=== PATIENT | male | born 1965 | race Caucasian/White ===

== ENCOUNTER 2016-11-30 20:35 | Emergency (ER) | payer MEDICARE ==
[2016-11-30] MEDS ORDERED: ONDANSETRON HCL IV 4 MG/2 ML VIAL IV ONE (20:53)
[2016-11-30] MEDS ORDERED: 0.9 % SODIUM CHLORIDE 1,000 ML BAG IV ONE (20:53)
[2016-11-30] MEDS ORDERED: MORPHINE SULFATE 5 MG/ML PFS IVP ONE (20:56)
--- NOTE | 2016-11-30 20:57 | Emergency Department Record ---
History of Present Illness - General Chief complaint: Pain Stated complaint: GENITAL PAIN Time Seen by Provider: 11/30/16 20:51 Source: Patient, Family Mode of Arrival: Ambulatory Limitations: No limitations - History of Present Illness Initial comments: 51 yo male presents with low abdominal pain into the groin and scrotum for about 3 weeks. No fevers or chills. No nausea, vomiting or changes in bowel movements. No changes in urination. At times the pain radiates to scrotum. No obvious swelling or hernia. He saw his PCP that did a pelvic US and XR. The pain is present at all times. No rash. He has prior history of gall bladder removal. Prior history of CABD, DM, HTN. -: Week(s) (3) Location: Left, Other (groin) History of Same: Yes Radiation: Distal Quality: Aching Consistency: Constant Improves with: Immobilization Worsens with: Exertion, Palpation Associated Symptoms: Denies other symptoms - Related Data Home Medications Medication Instructions Recorded Confirmed Last Taken Amlodipine Besylate [Norvasc] 10 mg PO DAILY 11/30/16 11/30/16 Unknown Aspirin [Adult Low Dose Aspirin EC] 81 mg PO DAILY 11/30/16 11/30/16 Unknown Atorvastatin Calcium [Lipitor] 80 mg PO DAILY 11/30/16 11/30/16 Unknown Cholecalciferol (Vitamin D3) 2,000 unit PO DAILY 11/30/16 11/30/16 Unknown [Vitamin D3] Fenofibrate [Lofibra] 160 mg PO DAILY 11/30/16 11/30/16 Unknown Furosemide [Lasix] 40 mg PO DAILY 11/30/16 11/30/16 Unknown Gabapentin [Neurontin] 300 mg PO TID 11/30/16 11/30/16 Unknown Gabapentin [Neurontin] 600 mg PO TID 11/30/16 11/30/16 Unknown Insulin Aspart Protam & Aspart 40 unit SQ QAM 11/30/16 11/30/16 Unknown [Novolog Mix 70/30 Vial] Insulin Aspart Protam & Aspart 50 unit SQ QPM 11/30/16 11/30/16 Unknown [Novolog Mix 70/30 Vial] Lamotrigine [Lamictal Xr] 50 mg PO DAILY 11/30/16 11/30/16 Unknown Lisinopril [Zestril] 100 mg PO DAILY 11/30/16 11/30/16 Unknown Metformin HCl [Glucophage] 1,000 mg PO BID 11/30/16 11/30/16 Unknown Metoprolol Tartrate [Lopressor] 100 mg PO BID 11/30/16 11/30/16 Unknown Nitroglycerin [Nitrostat] 0.4 mg SL Q5MIN PRN MDD 3 11/30/16 11/30/16 Unknown Potassium Chloride [Klor-Con] 20 meq PO BID 11/30/16 11/30/16 Unknown Ropinirole HCl [Requip] 0.25 mg PO TID 11/30/16 11/30/16 Unknown Previous Rx's Medication Instructions Recorded Ciprofloxacin HCl [Cipro] 500 mg PO Q12HR #20 tablet 11/30/16 Hydrocodone/Acetaminophen [[place] 1 tab PO Q6H PRN #15 tab 11/30/16 5mg/325mg] Allergies Allergy/AdvReac Type Severity Reaction Status Date / Time No Known Drug Allergies Allergy Verified 11/30/16 20:47 Review of Systems Constitutional: Denies: Chills, Fever, Malaise, Weakness Eyes: Denies: Eye discharge, Eye pain ENT: Denies: Congestion, Throat pain Respiratory: Denies: Cough Cardiovascular: Denies: Chest pain, Palpitations, Syncope Endocrine: Denies: Fatigue Gastrointestinal: Reports: As per HPI, Abdominal pain. Denies: Constipation, Diarrhea, Hematemesis, Melena, Nausea, Vomiting Genitourinary: Denies: Dysuria, Frequency, Hematuria Musculoskeletal: Denies: Arthralgia, Back pain, Myalgia, Neck pain Skin: Denies: Change in color Neurological: Denies: Headache Psychiatric: Denies: Anxiety Hematological/Lymphatic: Denies: Blood Clots, Easy bleeding, Easy bruising, Swollen glands Physical Exam - General General Appearance: Alert, Oriented x3, Cooperative, No acute distress Limitations: No limitations - Head Head exam: Normal inspection - Eye Eye exam: Normal appearance, PERRL. negative: Conjunctival injection, Periorbital swelling - ENT ENT exam: Normal exam Ear exam: Normal external inspection Nasal Exam: Normal inspection Mouth exam: Normal external inspection Teeth exam: Normal inspection Throat exam: Normal inspection - Neck Neck exam: Normal inspection, Full ROM. negative: Tenderness - Respiratory Respiratory exam: Normal lung sounds bilaterally. negative: Respiratory distress - Cardiovascular Cardiovascular Exam: Regular rate, Normal rhythm, Normal heart sounds - GI/Abdominal GI/Abdominal exam: Soft. negative: Distended - Rectal Rectal exam: Deferred - exam: Normal inspection, Testicular tenderness, Other (The scrotum is normal on inspection with standing, no erythema or visivle swelling. Normal penis on examination. He has mildly tender bilateral ). negative: Scrotal swelling, Urethral discharge - Extremities Extremities exam: Normal inspection, Full ROM, Normal capillary refill. negative: Tenderness - Back Back exam: Reports: Normal inspection, Full ROM. Denies: Muscle spasm, Rash noted, Tenderness - Neurological Neurological exam: Alert, Normal gait, Oriented X3 - Psychiatric Psychiatric exam: Normal affect, Normal mood - Skin Skin exam: Dry, Intact, Normal color, Warm Course Vital Signs 11/30/16 20:42 Temperature 97.9 F Pulse Rate [ 63 Pulse Ox Probe] Respiratory 20 Rate Blood Pressure 143/81 [Left Arm] Pulse Ox 95 - Reevaluation(s) Reevaluation #1: Vitals reviewed EMR reviewed. NO prior visit to [facility] Pt's PCP is in [place], He had his gall bladder removed in [place] as well 11/30/16 21:00 Reevaluation #2: No acute changes of the CBC or BMP 11/30/16 21:42 Reevaluation #3: The CT scan was negative for any acute process. No stones, hernias, mass or acute changes The results were discussed with the patient. The CT does not rule out other causes such as prostatitis, orchitis (although at this time his scrotal exam is unremarkable for swelling. He does state both testicles are tender on palpation.) I recommend he get a scrotal US as well. I recommend antibiotic in the event his pain is from prostatitis or orchitis. His pain has been present for 3 weeks or more. I recommend scrotal US as well. We discussed the options of seeing his PCP or returning. He requests return in the AM. I called radiology. There is a 9am opening. He will return at 8:45am no prep required. 11/30/16 21:47 Medical Decision Making - Lab Data Result diagrams: 11/30/16 21:00 11/30/16 21:00 Disposition Disposition: Discharge Clinical Impression: Scrotal pain Groin pain Qualifiers: Laterality: unspecified laterality Qualified Code(s): R10.30 - Lower abdominal pain, unspecified Disposition: Home, Self-Care Condition: (1) Good Additional Instructions: Return at 8:45am to the ER for a 9am US If worse, fever, uncontrolled pain return sooner or seek medical attention Cipro Twice daily [place] as directed as needed. No driving if on [place] Prescriptions: Ciprofloxacin HCl [Cipro] 500 mg PO Q12HR #20 tablet Hydrocodone/Acetaminophen [[place] 5mg/325mg] 1 tab PO Q6H PRN #15 tab PRN Reason: Pain - General Forms: Patient Portal Access Time of Disposition: 22:00
[2016-11-30 21:07] LABS: BASO % 0.3 % (0-6); EOS % 4.5 % (0-6); GRAN % 58.3 % (47-80); HEMATOCRIT 44.3 % (42.0-52.0); HEMOGLOBIN 14.9 gm/dl (14.0-18.0); LYMPH % 29.5 % (16-45); MEAN CELL VOLUME 82.3 fl (81-97); MEAN CORPUSCULAR HEMOGLOBIN 27.7 pg (27-33); MEAN CORPUSCULAR HGB CONC 33.6 g/dl (32-36); MEAN PLATELET VOLUME 10.9 fl (7.4-10.4); MONO % 7.4 % (0-9); PLATELET COUNT 290 K/uL (130-400); RED BLOOD COUNT 5.38 M/uL (4.40-5.70); RED CELL DISTRIBUTION WIDTH 14.1 % (11.5-14.5); WHITE BLOOD COUNT W/O DIFF 11.7 K/uL (4.2-12.2)
[2016-11-30 21:18] LABS: BLOOD UREA NITROGEN 21 mg/dL (9-20); CREATININE 0.9 mg/dL (0.66-1.25); EST GLOMERULAR FILTRATION RATE > 60 ml/min; GLUCOSE,RANDOM 158 mg/dL (70-110)
[2016-11-30] MEDS ORDERED: CIPROFLOXACIN HCL 500 MG TABLET PO ONE (22:02)
[2016-11-30] MEDS ORDERED: HYDROCODONE/APAP 5/325MG TABLET PO ONE (22:02)
[2016-11-30 22:06] LABS: URINE APPEARANCE CLEAR; URINE BILIRUBIN NEGATIVE (NEGATIVE); URINE BLOOD NEGATIVE (NEGATIVE); URINE COLOR YELLOW; URINE GLUCOSE (UA) NEGATIVE (NEGATIVE); URINE KETONE NEGATIVE (NEGATIVE); URINE LEUKOCYTE ESTERASE NEGATIVE (NEGATIVE); URINE NITRITE NEGATIVE (NEGATIVE); URINE UROBILINOGEN 0.2 E.U./dL (0.20 - 1.00)
== END 2016-11-30 22:43 | disposition home or self-care (01) ==
LOC: ER 20:35
DX: N50.82 Scrotal pain (principal); R10.30 Lower abdominal pain, unspecified; I10 Essential (primary) hypertension; E11.9 Type 2 diabetes mellitus without complications; Z79.4 Long term (current) use of insulin
CPT/HCPCS: 99284 ×2; 96374; 96375; 85025; 80048; 81003; 74176; J2405; J2270; J7030

== ENCOUNTER 2016-12-01 08:39 | Emergency (ER) | payer MEDICARE ==
--- NOTE | 2016-12-01 09:05 | Emergency Department Record ---
History of Present Illness - General Chief complaint: Pain Stated complaint: ULTRASOUND Time Seen by Provider: 12/01/16 08:53 Source: Patient Mode of Arrival: Ambulatory Limitations: No limitations - History of Present Illness Initial comments: The patient is here due to lower abdominal pain and groin pain for 3 weeks. The pain intermittently radiates to the testicles. Now for the last couple of days the testicle pain seems to be worsening. The patient has seen his PCP for it and did have a neg pelvic US and xrays. He was in the ER last evening and had normal lab work including a UA and a neg abdomen and pelvic CT. He is now back for a scrotal US. He denies any new problems or issues. Complaint: Other Onset/Timin -: Week(s) Location: Other History of Same: Yes Radiation: None Severity scale (1-10): 6 Quality: Aching, Stabbing Consistency: Constant Improves with: Nothing Worsens with: Nothing Associated Symptoms: Denies other symptoms - Related Data Home Medications Medication Instructions Recorded Confirmed Last Taken Amlodipine Besylate [Norvasc] 10 mg PO DAILY 11/30/16 11/30/16 Unknown Aspirin [Adult Low Dose Aspirin EC] 81 mg PO DAILY 11/30/16 11/30/16 Unknown Atorvastatin Calcium [Lipitor] 80 mg PO DAILY 11/30/16 11/30/16 Unknown Cholecalciferol (Vitamin D3) 2,000 unit PO DAILY 11/30/16 11/30/16 Unknown [Vitamin D3] Fenofibrate [Lofibra] 160 mg PO DAILY 11/30/16 11/30/16 Unknown Furosemide [Lasix] 40 mg PO DAILY 11/30/16 11/30/16 Unknown Gabapentin [Neurontin] 300 mg PO TID 11/30/16 11/30/16 Unknown Gabapentin [Neurontin] 600 mg PO TID 11/30/16 11/30/16 Unknown Insulin Aspart Protam & Aspart 40 unit SQ QAM 11/30/16 11/30/16 Unknown [Novolog Mix 70/30 Vial] Insulin Aspart Protam & Aspart 50 unit SQ QPM 11/30/16 11/30/16 Unknown [Novolog Mix 70/30 Vial] Lamotrigine [Lamictal Xr] 50 mg PO DAILY 11/30/16 11/30/16 Unknown Lisinopril [Zestril] 100 mg PO DAILY 11/30/16 11/30/16 Unknown Metformin HCl [Glucophage] 1,000 mg PO BID 11/30/16 11/30/16 Unknown Metoprolol Tartrate [Lopressor] 100 mg PO BID 11/30/16 11/30/16 Unknown Nitroglycerin [Nitrostat] 0.4 mg SL Q5MIN PRN MDD 3 11/30/16 11/30/16 Unknown Potassium Chloride [Klor-Con] 20 meq PO BID 11/30/16 11/30/16 Unknown Ropinirole HCl [Requip] 0.25 mg PO TID 11/30/16 11/30/16 Unknown Previous Rx's Medication Instructions Recorded Ciprofloxacin HCl [Cipro] 500 mg PO Q12HR #20 tablet 11/30/16 Hydrocodone/Acetaminophen [[place] 1 tab PO Q6H PRN #15 tab 11/30/16 5mg/325mg] Allergies Allergy/AdvReac Type Severity Reaction Status Date / Time No Known Drug Allergies Allergy Verified 11/30/16 20:47 Travel Screening - Travel/Exposure Within Last 30 Days Have you traveled within the last 30 days?: No - Travel/Exposure Within Last Year Have you traveled outside the [place] in the last year?: No - Additonal Travel Details Have you been exposed to anyone with a communicable illness?: No - Travel Symptoms Symptom Screening: None Review of Systems Constitutional: Denies: Chills, Fever Eyes: Denies: Eye discharge ENT: Denies: Congestion Respiratory: Denies: Cough, Dyspnea Past Medical History - SOCIAL HISTORY Smoking Status: Former smoker Alcohol Use: None Drug Use: None - RESPIRATORY Hx Respiratory Disorders: Yes Hx Sleep Apnea: Yes Hx of CPAP: Yes - CARDIOVASCULAR Hx Cardio Disorders: Yes Hx CHF: Yes Hx Heart Attack: Yes (03/2010) Hx Hypertension: Yes - NEURO Hx Neuro Disorders: No - GI Hx GI Disorders: Yes - Hx Genitourinary Disorders: No - ENDOCRINE Hx Endocrine Disorders: Yes Hx Diabetes: Yes - MUSCULOSKELETAL Hx Musculoskeletal Disorders: No - PSYCH Hx Psych Problems: Yes Hx Behavior Problems: Yes (Bipolar) - HEMATOLOGY/ONCOLOGY Hx Hematology/Oncology Disorders: No Family Medical History Any Significant Family History?: Yes Hx Cancer: Grandparents Hx Diabetes: Father, Mother Hx Heart Disease: Mother Physical Exam - General General Appearance: Alert, Oriented x3, Cooperative, No acute distress - Head Head exam: Atraumatic, Normocephalic, Normal inspection - Eye Eye exam: Normal appearance, PERRL - Neck Neck exam: Normal inspection, Full ROM. negative: Tenderness - Respiratory Respiratory exam: Normal lung sounds bilaterally. negative: Respiratory distress - Cardiovascular Cardiovascular Exam: Regular rate, Normal rhythm, Normal heart sounds - GI/Abdominal GI/Abdominal exam: Soft, Normal bowel sounds. negative: Guarding, Rebound, Rigid, Tenderness - exam: Circumcision, Normal inspection, Testicular tenderness (There is bilateraly testicle tenderness but no masses, swelling, or erythema is appreciated.). negative: Scrotal swelling Course Vital Signs 12/01/16 08:44 Temperature 97.4 F L Pulse Rate 68 Respiratory 20 Rate Blood Pressure 151/75 Pulse Ox 97 - Reevaluation(s) Reevaluation #1: I did discuss the results with the patient and the need for F/U. 12/01/16 10:15 Medical Decision Making - Data Complexity MDM Data: X-Ray Ordered and/or Reviewed - Radiology Data Radiology results: Report reviewed (US: Bilateral complex hydrocoeles, O/W neg.) Disposition Disposition: Discharge Clinical Impression: Scrotal pain Disposition: Home, Self-Care Condition: (1) Good Instructions: Groin Pain (ED) Additional Instructions: Please continue the oral antibiotics and pain medicines. Please see Dr. Chatterjee in the Specialty clinic tomorrow as directed. Return to the ER for any problems or issues. Referrals: [facility] Specialty Clinics [Provider Group] Forms: Patient Portal Access Time of Disposition: 10:19
== END 2016-12-01 10:31 | disposition home or self-care (01) ==
LOC: ER 08:39
DX: N50.82 Scrotal pain (principal); N43.3 Hydrocele, unspecified
CPT/HCPCS: 76870; 99283

== ENCOUNTER 2019-10-09 11:39 | Emergency (ER) | payer MEDICARE ==
--- NOTE | 2019-10-09 12:09 | Emergency Department Record ---
History of Present Illness - General Chief complaint: ENT Stated complaint: ENT Time Seen by Provider: 10/09/19 12:03 Source: Patient Mode of Arrival: Ambulatory Limitations: No limitations - History of Present Illness Initial comments: The patient is here due to a 5 day hx of nasal congestion, drainage, and facial pressure. He denies any ST, cough, fever, DOLL, CP or SOB. The patient is concerned he has a sinus infection. MD complaint: Other Onset/Timin -: Days(s) Severity: Moderate Severity scale (1-10): 4 Quality: Aching Consistency: Constant Improves with: None Worsens with: None - Related Data Home Medications Medication Instructions Recorded Confirmed Last Taken Insulin NPH Hum/Reg Insulin Hm 100 unit SQ 10/09/19 10/09/19 [Novolin 70-30 Flexpen] Previous Rx's Medication Instructions Recorded Ciprofloxacin HCl [Cipro] 500 mg PO Q12HR #20 tablet 11/30/16 Hydrocodone/Acetaminophen [[place] 1 tab PO Q6H PRN #15 tab 11/30/16 5mg/325mg] Doxycycline Monohydrate [Mondoxyne 100 mg PO BID 7 Days #14 capsule 10/09/19 Nl] Allergies Allergy/AdvReac Type Severity Reaction Status Date / Time lamotrigine [From Lamictal] AdvReac PT UNSURE Verified 10/09/19 11:50 OF REACTION Travel Screening - Travel/Exposure Within Last 30 Days Have you traveled within the last 30 days?: No - Travel/Exposure Within Last Year Have you traveled outside the [place] in the last year?: No - Additonal Travel Details Have you been exposed to anyone with a communicable illness?: No - Travel Symptoms Symptom Screening: None Review of Systems Constitutional: Denies: Chills, Fever, Malaise Eyes: Denies: Eye discharge ENT: Reports: Congestion. Denies: Throat pain Respiratory: Denies: Cough, Dyspnea Cardiovascular: Denies: Chest pain Past Medical History - SOCIAL HISTORY Smoking Status: Former smoker Alcohol Use: None Drug Use: None - RESPIRATORY Hx Respiratory Disorders: Yes Hx Sleep Apnea: Yes Hx of CPAP: Yes - CARDIOVASCULAR Hx Cardio Disorders: Yes Hx CHF: Yes Hx Heart Attack: Yes (03/2010) Hx Hypertension: Yes - NEURO Hx Neuro Disorders: No - GI Hx GI Disorders: Yes - Hx Genitourinary Disorders: No - ENDOCRINE Hx Endocrine Disorders: Yes Hx Diabetes: Yes - MUSCULOSKELETAL Hx Musculoskeletal Disorders: No - PSYCH Hx Psych Problems: Yes Hx Behavior Problems: Yes (Bipolar) - HEMATOLOGY/ONCOLOGY Hx Hematology/Oncology Disorders: No Family Medical History Any Significant Family History?: Yes Hx Cancer: Grandparents Hx Diabetes: Father, Mother Hx Heart Disease: Mother Physical Exam - General General Appearance: Alert, Oriented x3, Cooperative, No acute distress - Head Head exam: Atraumatic, Normocephalic, Normal inspection - Eye Eye exam: Normal appearance, PERRL - ENT Nasal Exam: Discharge (colored.), Sinus tenderness (bilateral maxillary areas.). negative: Normal inspection Throat exam: Normal inspection. negative: Tonsillar erythema, Tonsillar exudate - Neck Neck exam: Normal inspection, Full ROM. negative: Lymphadenopathy, Meningismus, Tenderness - Respiratory Respiratory exam: Normal lung sounds bilaterally. negative: Respiratory distress - Cardiovascular Cardiovascular Exam: Regular rate, Normal rhythm, Normal heart sounds - GI/Abdominal GI/Abdominal exam: Soft, Normal bowel sounds. negative: Tenderness Course Vital Signs 10/09/19 11:56 Temperature 97.9 F Pulse Rate 72 Respiratory 20 Rate Blood Pressure 123/109 Pulse Ox 98 - Reevaluation(s) Reevaluation #1: I did discuss the need for an oral Abx with the patient and the need for Flonase. He is to see his PCP later this week for recheck and to also recheck his BP. 10/09/19 12:12 Disposition Disposition: Discharge Clinical Impression: Sinusitis Qualifiers: Sinusitis location: unspecified location Chronicity: acute Recurrence: not specified as recurrent Qualified Code(s): J01.90 - Acute sinusitis, unspecified Disposition: Home, Self-Care Condition: (2) Stable Instructions: Rhinosinusitis (ED) Additional Instructions: Please take the Doxycycline as directed and please see your family doctor for recheck later this week and also to have your blood pressure rechecked. You may also use OTC Flonase for a week. Return to the ER for any worsening issues. Prescriptions: Doxycycline Monohydrate [Mondoxyne Nl] 100 mg PO BID 7 Days #14 capsule Forms: Patient Portal Access Time of Disposition: 12:09 Quality - Quality Measures Quality Measures: N/A - Blood Pressure Screening View Details: Yes Does Patient Have Any of the Following: Active Dx of HTN Blood Pressure Classification: Hypertensive Reading Systolic Measurement: 123 Diastolic Measurement: 109 Screening for High Blood Pressure: Patient Exclusion, Hx of HTN [[id number]]
== END 2019-10-09 12:34 | disposition home or self-care (01) ==
LOC: ER 11:39
DX: J01.90 Acute sinusitis, unspecified (principal); J44.9 Chronic obstructive pulmonary disease, unspecified; I25.2 Old myocardial infarction; E11.9 Type 2 diabetes mellitus without complications; I10 Essential (primary) hypertension; Z87.891 Personal history of nicotine dependence
CPT/HCPCS: 99283